=== PATIENT | female | born 1955 | race Caucasian/White ===

== ENCOUNTER 2020-02-05 11:48 | Outpatient (CLI) | payer BC, SELFPAY ==
--- NOTE | ~2020-02-05 | XR_ITS ---
EXAMINATION: XR chest 2V 02/05/2020 12:05 INDICATION: Cough, fever and shortness of breath PROCEDURE: 2 view chest COMPARISON: Comparison to multiple prior studies sequentially, with oldest reviewed study dated 06/09. FINDINGS: The lungs are clear. The cardiomediastinal silhouette is within normal limits. There are no pleural effusions. There is no pneumothorax suspected. IMPRESSION: 1: NO ACUTE CARDIOPULMONARY DISEASE. Reviewed, dictated and finalized at location A.
== END 2020-02-05 11:49 | disposition home or self-care (01) ==
PROVIDERS: PCP Physician Assistant; Visit Provider Physician Assistant
DX: R05 Cough (principal)
CPT/HCPCS: 71046

== ENCOUNTER 2020-03-03 13:14 | Outpatient (CLI) | payer BC, SELFPAY ==
--- NOTE | ~2020-03-03 | MMUS_ITS ---
EXAMINATION: MM diagnostic monique BI w cherie, US breast RT limited HISTORY: Pain under right breast TECHNIQUE: ML, MLO and craniocaudal full field and right spot 3-D tomosynthesis images of both breast s were performed and synthetic 2-D images were generated. CAD analysis was submitted and interpreted. High resolution limited right breast ultrasound was performed. COMPARISON: 02/11/2019, 02/06/2018 bilateral digital screening mammogram examinations bilateral diagnostic digital mammogram and complete right breast ultrasound FINDINGS: MAMMOGRAPHIC FINDINGS: Again noted is a focal opacity in the inner mid right breast at mid depth, stable since 10/31/2016. No interval suspicious mass or architectural distortion, malignant calcification, skin thickening or retraction or significant new or developing density is detected. ULTRASOUND: There is no evidence of focal abnormal solid or cystic lesion in the vicinity of the mammographic opa city noted in the inner mid right breast. IMPRESSION: 1. No mammographic evidence of malignancy; no significant change of right breast opacity since 017 2. Routine mammographic screening follow-up is recommended. BI-RADS Category 2: Benign finding(s). Reviewed, dictated and finalized at location A. IMPRESSION: 1. No mammographic evidence of malignancy; no significant change of right breas t opacity since 10/31/2016 2. Routine mammographic screening follow-up is recommended. BI-RADS Category 2: Benign finding(s).
== END 2020-03-03 13:15 | disposition home or self-care (01) ==
PROVIDERS: PCP Physician Assistant; Visit Provider Physician Assistant
DX: N64.4 Mastodynia (principal)
CPT/HCPCS: 76642; 77062; 77066; G0279

== ENCOUNTER 2020-07-18 08:48 | Outpatient (CLI) | payer BC, SELFPAY ==
--- NOTE | ~2020-07-18 | MR_ITS ---
EXAMINATION: MR knee LT wo con DATE: 07/18/2020 10:33 INDICATION: Left knee pain TECHNIQUE: Magnetic resonance imaging (MRI) of the left knee was performed without intravenous contra st. Sequences included coronal PD-weighted FSE, coronal PD-weighted FS FSE, sagittal T2-weighted FSE , sagittal PD-weighted FS FSE and axial PD weighted fat saturated FSE. COMPARISON: Left knee radiographs dated 10/28/2018 FINDINGS: Medial compartment: Medial meniscus is normal. Deep chondral ulceration and fissuring in places likely full-thickness wit h subcortical edema and irregular underlying articular cortical contour along the lateral third of th e anterior to central weightbearing medial femoral condyle. Juxtaposed partial-thickness chondral ulc eration and deep fissuring without degenerative subchondral changes along the shoulder of the interco ndylar eminence at the lateral side of the medial tibial plateau. Lateral compartment: Lateral meniscus is normal. Partial-thickness chondral fissuring without degenerative subarticular ch anges at the central aspect of the weightbearing lateral femoral condyle. Patellofemoral compartment: Full and near full-thickness chondral ulceration and fissuring with underlying subarticular edema and cortical irregularity at the medial patellar facet, apical ridge and medial side of the lateral face t as well as the medial trochlea. Partial thickness cartilage loss with smooth chondral surface at th e inferior aspect of the lateral trochlea. Ligaments and tendons: Anterior and posterior cruciate ligaments are normal. The medial collateral ligament and fibular ruthie ateral ligament complex are normal. The extensor mechanism is normal. The visualized medial and later al hamstring tendons as well as the iliotibial band are normal. Fluid: Physiologic amount of fluid in the joint space. There is a cluster of 3 peripherally calcified osteoc hondral bodies the largest measuring up to 6 mm in the posterior recess at the lateral side of the me dial compartment. Additional 7 mm osteochondral body at the medial side of the posterior recess of th e lateral compartment. Small Thornton's cyst. Osseous/other: Bone alignment is normal. There is patchy red marrow reconversion in the distal metaphyseal region of the femur and to lesser degree the proximal metaphyseal region of the tibia. No fracture or patholog ic marrow replacing process. IMPRESSION: 1. 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 Reviewed, dictated and finalized at location A. INE [employer]ER IMPRESSION: 1. Mild tricompartmental osteoarthritis with moderate amount of high-grade beronica dromalacia in the medial and patellofemoral compartments and small region of mo derate grade chondromalacia in the lateral compartment.
== END 2020-07-18 08:49 | disposition home or self-care (01) ==
PROVIDERS: PCP Physician Assistant; Visit Provider Orthopaedic Surgery
DX: M17.12 Unilateral primary osteoarthritis, left knee (principal)
CPT/HCPCS: 73721

== ENCOUNTER 2020-10-21 10:59 | Outpatient (CLI) | payer BC, MEDICARE, SELFPAY ==
--- NOTE | 2020-10-21 11:10 | ECG_ITS ---
Measurements Intervals [place] Rate: 74 P: 8 OK: 217 QRS: -8 QRSD: 87 T: 42 QT: 344 QTc: 384 Interpretive Statements SINUS RHYTHM WITH FIRST DEGREE AV BLOCK VOLTAGE CRITERIA FOR LVH POOR R WAVE PROGRESSION, ANTERIOR LEADS NONSPECIFIC T-WAVE ABNORMALITY- HIGH LATERAL LEADS BASELINE ARTIFACT- I, II, III, AVR, AVL, AVF, V1, V4-V6 ABNORMAL ECG Electronically Signed On 10-21-2020 11:51:05 UI PROGRAMMER by Pillo Rahman D.O.
[2020-10-21 11:47] LABS: Anion Gap 7 mmol/L (8-16); Blood Urea Nitrogen 22 mg/dL (7-17); Calcium 9.4 mg/dL (8.4-10.2); Carbon Dioxide 30 mmol/L (22-30); Chloride 103 mmol/L (98-107); Estimated Glomerular Filt Rate 50; Glucose 119 mg/dL (65-105); Potassium 3.6 mmol/L (3.4-5.0); Sodium 140 mmol/L (137-145)
== END 2020-10-21 11:00 | disposition home or self-care (01) ==
LOC: ANHSURGERY 11:10
PROVIDERS: Anesthesiology; PCP Physician Assistant; Visit Provider Orthopaedic Surgery
DX: Z79.899 Other long term (current) drug therapy (principal); I10 Essential (primary) hypertension; Z01.818 Encounter for other preprocedural examination
CPT/HCPCS: 36415; 80048; 93005

== ENCOUNTER → 2020-10-26 00:39 | Outpatient (CLI) | payer BC, MEDICARE, SELFPAY ==
[2020-10-26 19:41] LABS: SARS-CoV-2 RNA PCR Negative
== END ==
PROVIDERS: PCP Physician Assistant; Visit Provider Orthopaedic Surgery
DX: Z01.812 Encounter for preprocedural laboratory examination (principal); Z20.822 Contact with and (suspected) exposure to COVID-19
CPT/HCPCS: C9803; U0003; U0005

== ENCOUNTER 2020-10-28 00:46 | Day surgery (SDC) | payer BC, MEDICARE, SELFPAY ==
[2020-10-20 11:22] VITALS: BMI 33.0
[2020-10-28] VITALS (13 sets, daily range): BP systolic 131–160; BP diastolic 67–85; PULSE 70–85; RESP 10–20; TEMP 36.1–36.4; O2SAT 96–100
--- NOTE | 2020-10-28 07:16 | WPDHPUPDATE1 ---
History and Physical Update Update Date/Time: 10/28/20 07:16 History and Physical has been reviewed, including an updated exam of the patient. There are NO changes in the patient's condition. Risks, benefits, and alternatives have been discussed and questions answered. Patient agrees to proceed with procedure.
--- NOTE | 2020-10-28 07:57 | WPDANESEPPF ---
Anes - Initial Pre Proc Eval Procedure: Operation Date: 10/28/20 11:00 Proposed Procedures p Left Knee Arthroscopy, Proceed As Indicated - Tim Eric MD Date/Time: 10/28/20 07:57 Surgeon: Tim Eric MD Pre Op Diagnosis: Left Knee Chondromalasia, Left knee loose body Patient Data Age: 65 Gender: F Height: 1.57 m Weight: 82 kg Allergies Allergy/AdvReac Type Severity Reaction Status Date / Time droperidol Allergy Severe Anaphylaxis Verified 10/20/20 11:53 Penicillins Allergy Severe THROAT Verified 10/28/20 09:19 SWELLING/RASH NSAIDS (Non-Steroidal AdvReac Severe CANNOT Verified 10/28/20 09:19 Anti-Inflamma TAKE R/T NEPHRECTOMY latex AdvReac Intermediate RASHES Verified 10/28/20 09:19 Home Medications Medication Instructions Recorded Confirmed Type amlodipine 5 mg tablet 5 mg PO QAM 07/07/20 10/28/20 History hydrochlorothiazide 25 mg tablet 25 mg PO QAM 07/07/20 10/28/20 History potassium chloride 10 mEq 10 meq PO DAILY 07/07/20 10/28/20 History capsule,extended release bimatoprost 0.01 % eye drops 1 drp OPHTHALMIC (EYE) HS 10/03/20 10/28/20 History biotin 10,000 mcg capsule 10,000 mcg PO DAILY 10/03/20 10/28/20 History calcium carbonate 500 mg calcium 500 mg PO DAILY 10/03/20 10/28/20 History (1,250 mg) tablet chlorhexidine gluconate 4 % 1 applic TOPICAL ONCE #237 ml 10/04/20 10/28/20 Rx topical liquid Thynatural 1 tab-cap PO DAILY 10/20/20 10/28/20 History multivitamin [Daily Multiple] 1 tablet PO DAILY 10/20/20 10/28/20 History omeprazole 20 mg PO QAM 10/20/20 10/28/20 History Patient hx anesthesia problems: post op nausea/vomiting Family hx anesthesia problems: none PMFSH Past Medical History Medical History (Updated 10/28/20 @ 07:57 by Lokesh Vasquez DO) Arthritis of knee, left BMI 33.0-33.9,adult Constipation Hiatal hernia Histoplasmosis Hypertension Hypothyroidism PONV (postoperative nausea and vomiting) Renal cell carcinoma Weight gain Surgical History Surgical History H/O knee surgery right knee, meniscus repair, 2016, Dr. Michael History of appendectomy History of nephrectomy right, 2014 for renal cell carcinoma Family History Family History (Updated 10/03/20 @ 11:44 by Lyssa Black, RT(R)) Mother Patient's mother is in good health Sibling Patient's sister is in good health Father Family history of Parkinson's disease, Onset Age: 82 Patient's father is , Onset Age: 82 Other Arthritis Diabetes mellitus Hypertension Social History Social History (Updated 10/03/20 @ 11:45 by Lyssa Black, RT(R)) Smoking status: Never smoker Second hand tobacco smoke exposure: No Alcohol intake: never Substance use: never Substance use type: does not use Living arrangements: with family Additional living arrangements comments: Gender identity (if verbalized by the patient): Female Spiritual care concerns: No Anes - Eval Final PreProcedure Day of Procedure 10/28/20 07:57 Patient weight: obese Heart: regular rate and rhythm Lungs: clear to auscultation and normal air movement Airway: Mallampati scale class II Neurological: alert and oriented Last oral intake: >/= 8 hours ASA classification: III Emergent: no Anesthetic plan: proceed Anesthesia type and monitoring: general LMA and standard monitoring Informed Consent: The patient's anesthetic plan and its attendant risks and benefits were discussed with the patient/family/POA. Questions were solicited and answers provided to the satisfaction of the patient/family/POA.
[2020-10-28] MEDS: LACTATED RINGERS 1,000 ML 30 ML IV CONT ×2 (09:30→12:47)
[2020-10-28] MEDS: ACETAMINOPHEN 500 MG TABLET 1000 MG PO (09:33)
[2020-10-28] MEDS: SCOPOLAMINE 1.5 MG PATCH TRANSDERM (10:03)
[2020-10-28] MEDS: FAMOTIDINE 20 MG/2 ML VIAL IV PUSH (10:04)
[2020-10-28] MEDS: CLINDAMYCIN 900 MG/D5W 50 ML 900 MG/50 ML PIGGYBACK 50 MG IVPB (10:59)
[2020-10-28] MEDS: BUPIVACAINE HCL 0.5% PF 30 ML VIAL INFILTRATE (11:26)
[2020-10-28] MEDS: methylPREDNISolone ACETATE 80 MG/ML VIAL 160 MG IM (11:36)
--- NOTE | 2020-10-28 12:18 | SUR.OPER ---
Ebl=10ml
[2020-10-28] MEDS: fentaNYL CITRATE INJ (*CRX) 100 MCG/2 ML VIAL 25 MCG IV PUSH ×8 (13:02→14:02)
--- NOTE | 2020-10-28 13:07 | P.OP_ITS ---
Procedure Note - Detailed Date of procedure: 10/28/20 Pre-op diagnosis: Left Knee Chondromalasia, Left knee loose body Post-op diagnosis: other Procedure performed: LEFT PARTIAL MEDIAL MENISECTOMY, REMOVAL OF LOOSE BODY, CHONDROPLASTY Description of procedure: PATIENT WAS TAKEN TO THE OR. LEFT LEG WAS PREPPED AND DRAPED STERILE. TROCARS WERE PLACED IN THE USUAL FASHION. CAMERA WAS INTRODUCED. THERE WAS CHONDROMALACIA TO THE PATELLA FEMORAL JOINT. THERE WAS A LOT OF SYNOVITIS IN ALL COMPARTMENTS. THE MEDIAL COMPARTMENT SHOWED CHONDROMALACIA TO THE MED FEMORAL CONDYLE. A SHAVER WAS USED TO PREFORM A CHONDROPLASTY. THERE WAS A COMPLEX MEDIAL MENISCUS TEAR. THE TEAR EXTENDED TO THE ROOT. THE TEAR WAS RESECTED WITH A BITER AND A SHAVER DOWN TO A SMOOTH BASE. ABOUT 15% OF THE MENISCUS WAS REMOVED. THE ACL WAS INTACT. THE LATERAL ME NISCUS WAS NOT TORN. THE LAT COMPARTMENT HAD NO CHONDROMALACIA. A SYNOVECTOMY WAS PREFORMED. THE PATELLO FEMORAL JOINT UNDERWENT CHONDROPLASTY. SYNOVECTOMY WAS PREFORMED IN THE SUPERIOR MEDIAL COMPARTMENT. THE WOUNDS WERE APPROXIMATED WITH 4.0 NYLON. STERILE DRESSING WAS APPLIED. PATIENT WAS EXTUBATED. Anesthesia: GLMA Surgeon: Tim Eric MD Estimated blood loss (mL): 5 Complications: No immediate complications Condition: stable Disposition: PACU
[2020-10-28] MEDS: ONDANSETRON INJ 4 MG/2 ML VIAL IV PUSH (13:18)
[2020-10-28] MEDS: HYDROmorphone HCL INJ (*CRX) 1 MG/ML SYR 0.5 MG IV PUSH ×3 (14:16→15:20)
[2020-10-28] MEDS: oxyCODONE HCL (*CRX) 5 MG TAB IR PO (15:13)
[2020-10-28] MEDS: diphenhydrAMINE HCl INJ 50 MG/ML VIAL 25 MG IV PUSH (15:55)
--- NOTE | 2020-10-28 17:04 | SUR.PHASEII ---
Patient had some pain control issues at first then was nauseated and threw-up in outpatient so that is why discharge was so delayed.
== END 2020-10-28 16:40 | disposition home or self-care (01) ==
PROVIDERS: PCP Physician Assistant; Visit Provider Orthopaedic Surgery
PROC: (CPT 29870; principal; 2020-10-28 11:00)
DX: M94.262 Chondromalacia, left knee (principal); M23.332 Other meniscus derangements, other medial meniscus, left knee; M65.862 Other synovitis and tenosynovitis, left lower leg; M17.12 Unilateral primary osteoarthritis, left knee; K59.00 Constipation, unspecified; K44.9 Diaphragmatic hernia without obstruction or gangrene; B39.9 Histoplasmosis, unspecified; Z80.51 Family history of malignant neoplasm of kidney; E66.9 Obesity, unspecified; Z68.32 Body mass index [BMI] 32.0-32.9, adult
CPT/HCPCS: 29881; 36415; 80048; 93005; A9270; C9803; J1040; J1100; J1170; J1200; J2250; J2405; J2704; J3010; J7120; U0003; U0005